=== PATIENT | female | born 1970 | race Caucasian/White ===

== ENCOUNTER 2017-04-18 14:51 | Emergency (ER) | payer MEDICAID ==
[~2017-04-18] VITALS: Ht 157.5 cm; Wt 52.2 kg
[2017-04-18 14:51] VITALS: BP_SYST 179
[2017-04-18] MEDS ORDERED: BACITRACIN 1 GM OINT TP ONE (15:15)
[2017-04-18] MEDS ORDERED: NACL 0.9% 1,000 ML IV ONE (15:15)
[2017-04-18] MEDS ORDERED: AMOXICILLIN/CLAVULANATE POTASSIUM 875 MG TABLET PO ONE (15:15)
[2017-04-18] MEDS ORDERED: DIPH-TET-PERTUS Vaccine 0.5 ML VIAL (ADACEL) I.M. ONE (15:15)
[2017-04-18] MEDS ORDERED: KETOROLAC TROMETHAMINE 30 MG VIAL IVP ONE (15:15)
[2017-04-18] MEDS ORDERED: KETOROLAC TROMETHAMINE 60 MG/2 ML VIAL IM ONE (15:15)
[2017-04-18] MEDS ORDERED: IBUPROFEN 800 MG TABLET PO ONE (15:30)
[2017-04-18] MEDS ORDERED: ONDANSETRON 4 MG ODT TAB PO ONE (15:45)
[2017-04-18 16:30] VITALS: BP_SYST 150
== END 2017-04-18 16:25 | disposition home or self-care (01) ==
LOC: SED 14:51
DX: S00.81XA Abrasion of other part of head, initial encounter (principal); I10 Essential (primary) hypertension; Z88.2 Allergy status to sulfonamides; Z88.5 Allergy status to narcotic agent; W55.03XA Scratched by cat, initial encounter; Y93.89 Activity, other specified; Y92.89 Other specified places as the place of occurrence of the external cause; Y99.8 Other external cause status
CPT/HCPCS: 90471; 90715; 99284; J1885; Q0162